=== PATIENT | male | born 1965 | race Caucasian/White ===

== ENCOUNTER 2019-11-17 00:56 | Inpatient (IN) | payer MEDICAID ==
[~2019-11-17] VITALS: Ht 167.6 cm; Wt 75.3 kg
[2019-11-17] VITALS (18 sets, daily range): BP systolic 123–181; BP diastolic 77–116
[2019-11-17] MEDS ORDERED: SUCCINYLCHOLINE CHLORIDE 200MG/10ML IV ONE ×2 (01:03→01:15)
[2019-11-17] MEDS ORDERED: ETOMIDATE 2MG/ML 10ML VIAL IV ONE ×2 (01:03→01:15)
[2019-11-17] MEDS ORDERED: MORPHINE SULFATE 4 MG/ML CPJ (NOT FOR IM USE) IV STA (01:06)
[2019-11-17] MEDS ORDERED: NITROGLYCERIN 50MG PREMIX 250 ML IV ONE (01:06)
[2019-11-17] MEDS ORDERED: ONDANSETRON HCL 4MG/2ML INJ IV STA (01:06)
[2019-11-17] MEDS ORDERED: FUROSEMIDE 40MG/4ML VIAL IV ONE (01:15)
[2019-11-17] MEDS ORDERED: MIDAZOLAM HCL 50 MG in DEXTROSE 5% WATER 40 ML IV ONE (01:15)
[2019-11-17] MEDS ORDERED: MIDAZOLAM HCL 2 MG/2 ML VIAL IV ONE (01:15)
[2019-11-17] MEDS ORDERED: FENTANYL CITRATE/PF 500 MCG in SODIUM CHLORIDE 0.9% 40 ML IV PRN ×5 (01:15→10:15)
[2019-11-17 01:44] LABS: BASOPHILS % 0.7 % (0.0-2.0); EOSINOPHILS % 1.2 % (0.0-5.0); HEMATOCRIT. 42.4 % (42.0-52.0); HEMOGLOBIN. 13.6 g/dL (14.0-18.0); LYMPHOCYTES % 21.7 % (20.0-50.0); MEAN CORPUSCULAR HEMOGLOBIN 25.6 pg (28.0-32.0); MEAN CORPUSCULAR VOLUME 79.5 fL (80.0-94.0); MEAN PLATELET VOLUME 8.5 fl (7.4-10.4); MONOCYTES % 5.5 % (2.0-8.0); NEUTROPHILS % 70.9 % (40.0-76.0); PLATELET 303 x1000/uL (130-400); RED BLOOD CELL COUNT 5.33 mill/uL (4.7-6.1); RED CELL DISTRIBUTION WIDTH 16.4 % (11.6-14.6)
[2019-11-17 01:46] LABS: CHLORIDE 105 mEq/L (98-107)
[2019-11-17 02:08] LABS: BG BASE EXCESS -2.7 mmol/L (-2.0-2.0); BG CARBOXYHEMOGLOBIN 0.4 % (0.5-1.5); BG FRACTION INSPIRED OXYGEN 100; BG HCO3 ACT 22.8 mmol/L (22.0-26.0); BG METHEMOGLOBIN 0.3 % (0.0-1.5); BG OXYHEMOGLOBIN 98.3 % (94.0-97.0); BG PCO2 41.8 mmHg (35.0-45.0); BG PH 7.354 (7.350-7.450); BG PO2 161.4 mmHg (75.0-100.0); BG SAMPLE SITE RIGHT BRACHIAL; BG TIDAL VOLUME(mL) 500 mL; BG TOTAL HEMOGLOBIN 12.8 g/dL (12.0-18.0); BG VENT MODE VENT - A/C; BG VENT RATE 16 set
[2019-11-17] MEDS ORDERED: MIDAZOLAM 50 MG in DEXTROSE 5% WATER 50ML IV ONE (06:30)
[2019-11-17] MEDS ORDERED: ACETAMINOPHEN 325MG TABLET PO PRN (07:30)
[2019-11-17] MEDS ORDERED: HYDROCODONE/ACETAMINOPHEN 5/325MG TABLET PO PRN (07:30)
[2019-11-17] MEDS ORDERED: IPRATROPIUM/ALBUTEROL 0.5-3(2.5)MG/3ML NEB NEB PRN (07:30)
[2019-11-17] MEDS ORDERED: MORPHINE SULFATE 2 MG/ML CPJ (NOT FOR IM USE) IV PRN (07:30)
[2019-11-17] MEDS ORDERED: LORAZEPAM 2MG/ML CPJ IV PRN (07:30)
[2019-11-17] MEDS ORDERED: ONDANSETRON HCL 4MG/2ML INJ IV PRN (07:30)
[2019-11-17] MEDS ORDERED: CEFTRIAXONE 1 G PREMIX 50 ML IV ONE (08:15)
[2019-11-17] MEDS ORDERED: AZITHROMYCIN 500 MG in DEXT 5% WATER 250 ML IV ONE (08:15)
[2019-11-17] MEDS: METHYLPREDNISOLONE SOD SUCC 125 MG/2 ML VIAL IV SCH ×4 (08:44→23:18)
[2019-11-17] MEDS: ENOXAPARIN 40MG/0.4ML SYR SUBCUT SCH (09:02)
[2019-11-17 10:01] LABS: CLARITY URINE CLOUDY (CLEAR); COLOR URINE DARK YELLOW (YELLOW); KETONES URINE TRACE (NEGATIVE); LEUKOCYTE ESTERASE URINE TRACE (NEGATIVE); NITRITE URINE NEGATIVE (NEGATIVE); OCCULT BLOOD URINE 2+ (NEGATIVE); PROTEIN URINE 4+ (NEGATIVE); SPECIFIC GRAVITY URINE 1.029 (1.005-1.030)
[2019-11-17] MEDS ORDERED: MIDAZOLAM HCL 50 MG in DEXTROSE 5% WATER 40 ML IV PRN (10:15)
[2019-11-17 10:25] LABS: *BARBITURATES SCREEN URINE NEGATIVE (NEGATIVE)
[2019-11-17 10:26] LABS: *AMPHETAMINES SCREEN URINE NEGATIVE (NEGATIVE); *BENZODIAZEPINES SCREEN URINE NEGATIVE (NEGATIVE); *COCAINE SCREEN URINE NEGATIVE (NEGATIVE); METHADONE URINE SCREEN NEGATIVE (NEGATIVE); OPIATES URINE SCREEN NEGATIVE (NEGATIVE); PHENCYCLIDINE URINE SCREEN NEGATIVE (NEGATIVE)
[2019-11-17 10:27] LABS: CANNABINOID URINE SCREEN NEGATIVE (NEGATIVE)
[2019-11-17] MEDS: FUROSEMIDE 40MG/4ML VIAL IVP SCH (11:02)
[2019-11-17] MEDS: PANTOPRAZOLE SODIUM 40 MG/VIAL IV SCH (11:02)
[2019-11-17 14:36] LABS: HEPATITIS B SURFACE ANTIGEN NEGATIVE
[2019-11-17] MEDS: AMLODIPINE 2.5MG TABLET NG SCH ×2 (15:00→20:09)
[2019-11-17 15:05] LABS: HEPATITIS A AB IGM NEGATIVE (NEGATIVE)
[2019-11-17 15:33] LABS: BASOPHILS % 0.1 % (0.0-2.0); HEMATOCRIT. 40.3 % (42.0-52.0); HEMOGLOBIN. 13.4 g/dL (14.0-18.0); LYMPHOCYTES % 9.2 % (20.0-50.0); MEAN CORPUSCULAR HEMOGLOBIN 25.9 pg (28.0-32.0); MEAN PLATELET VOLUME 8.6 fl (7.4-10.4); MONOCYTES % 1.7 % (2.0-8.0); PLATELET 235 x1000/uL (130-400); RED BLOOD CELL COUNT 5.17 mill/uL (4.7-6.1); RED CELL DISTRIBUTION WIDTH 16.6 % (11.6-14.6)
[2019-11-17 15:55] LABS: CHLORIDE 102 mEq/L (98-107)
[2019-11-17 16:05] LABS: CREATINE KINASE 79 IU/L (39-308)
[2019-11-17 16:08] LABS: CREATINE KINASE MB FRACTION 3.2 ng/mL (0.5-3.6)
[2019-11-17] MEDS ORDERED: POTASSIUM CHLORIDE 20MEQ/PACKET PO SCH (16:30)
[2019-11-17] MEDS ORDERED: DEXTROSE 50% WATER 50ML SYRINGE IV PRN ×2 (22:00)
[2019-11-18] VITALS (31 sets, daily range): BP systolic 129–160; BP diastolic 80–104
[2019-11-18 00:45] LABS: CREATINE KINASE 57 IU/L (39-308)
[2019-11-18 00:46] LABS: CREATINE KINASE MB FRACTION 2.6 ng/mL (0.5-3.6)
[2019-11-18 05:38] LABS: CHLORIDE 104 mEq/L (98-107)
[2019-11-18 05:40] LABS: HEMATOCRIT. 40.4 % (42.0-52.0); HEMOGLOBIN. 13.3 g/dL (14.0-18.0); MEAN CORPUSCULAR HEMOGLOBIN 25.9 pg (28.0-32.0); MEAN CORPUSCULAR VOLUME 78.5 fL (80.0-94.0); MEAN PLATELET VOLUME 8.9 fl (7.4-10.4); PLATELET 239 x1000/uL (130-400); RED BLOOD CELL COUNT 5.14 mill/uL (4.7-6.1); RED CELL DISTRIBUTION WIDTH 16.7 % (11.6-14.6)
[2019-11-18] MEDS: BLOOD SUGAR DIAGNOSTIC STRIP TEST SCH ×4 (06:21→23:24)
[2019-11-18] MEDS: INSULIN LISPRO 100 UNITS/ML SUBCUT SCH ×4 (06:21→23:24)
[2019-11-18] MEDS: METHYLPREDNISOLONE SOD SUCC 125 MG/2 ML VIAL IV SCH (06:21)
[2019-11-18] MEDS: IPRATROPIUM/ALBUTEROL 0.5-3(2.5)MG/3ML NEB HHN PRN ×3 (07:25→15:20)
[2019-11-18] MEDS ORDERED: BLOOD SUGAR DIAGNOSTIC STRIP TEST SCH (07:50)
[2019-11-18 07:51] LABS: BG BASE EXCESS 0.6 mmol/L (-2.0-2.0); BG CARBOXYHEMOGLOBIN 0.8 % (0.5-1.5); BG DEOXYHEMOGLOBIN 0.3 % (0.0-5.0); BG FRACTION INSPIRED OXYGEN 70; BG HCO3 ACT 23.8 mmol/L (22.0-26.0); BG METHEMOGLOBIN 0.4 % (0.0-1.5); BG OXYGEN SATURATION 99.7 % (92.0-98.5); BG OXYHEMOGLOBIN 98.5 % (94.0-97.0); BG PCO2 34.1 mmHg (35.0-45.0); BG PH 7.462 (7.350-7.450); BG PO2 307.7 mmHg (75.0-100.0); BG SAMPLE SITE RIGHT RADIAL; BG TIDAL VOLUME(mL) 500 mL; BG VENT MODE VENT - A/C; BG VENT RATE 16 set
[2019-11-18] MEDS ORDERED: INSULIN LISPRO 100 UNITS/ML SUBCUT SCH (08:20)
[2019-11-18] MEDS: ASPIRIN 81MG TABLET NG SCH (09:10)
[2019-11-18] MEDS: FUROSEMIDE 40MG/4ML VIAL IVP SCH (09:10)
[2019-11-18] MEDS: AMLODIPINE 2.5MG TABLET NG SCH (09:11)
[2019-11-18] MEDS: AZITHROMYCIN 500 MG in DEXT 5% WATER 250 ML IV SCH (09:11)
[2019-11-18] MEDS: ENOXAPARIN 40MG/0.4ML SYR SUBCUT SCH (09:11)
[2019-11-18] MEDS: PANTOPRAZOLE SODIUM 40 MG/VIAL IV SCH (10:51)
[2019-11-18] MEDS: CEFTRIAXONE 1 G PREMIX 50 ML IV SCH (10:52)
[2019-11-18 12:20] LABS: BG BASE EXCESS 0.3 mmol/L (-2.0-2.0); BG CARBOXYHEMOGLOBIN 0.7 % (0.5-1.5); BG FRACTION INSPIRED OXYGEN 40; BG HCO3 ACT 23.6 mmol/L (22.0-26.0); BG METHEMOGLOBIN 0.4 % (0.0-1.5); BG OXYHEMOGLOBIN 95.9 % (94.0-97.0); BG PCO2 34.4 mmHg (35.0-45.0); BG PH 7.455 (7.350-7.450); BG PO2 92.8 mmHg (75.0-100.0); BG PRESSURE SUPPORT 8; BG SAMPLE SITE RIGHT BRACHIAL; BG TOTAL HEMOGLOBIN 14.5 g/dL (12.0-18.0); BG VENT MODE VENT - CPAP
[2019-11-18 12:24] LABS: PLATELET ESTIMATE NORMAL
[2019-11-18] MEDS ORDERED: POTASSIUM CHLORIDE 20MEQ/PACKET NG NR (14:15)
[2019-11-18] MEDS: CARVEDILOL 3.125 MG TABLET NG SCH ×2 (17:47→20:39)
[2019-11-18] MEDS: METHYLPREDNISOLONE SOD SUCC 40 MG/ML VIAL IV SCH (17:47)
[2019-11-19] VITALS (35 sets, daily range): BP systolic 100–147; BP diastolic 42–92
[2019-11-19] MEDS: BLOOD SUGAR DIAGNOSTIC STRIP TEST SCH ×4 (05:26→21:46)
[2019-11-19] MEDS: INSULIN LISPRO 100 UNITS/ML SUBCUT SCH ×4 (05:27→21:47)
[2019-11-19 05:36] LABS: HEMATOCRIT. 41.7 % (42.0-52.0); HEMOGLOBIN. 13.7 g/dL (14.0-18.0); MEAN CORPUSCULAR HEMOGLOBIN 25.7 pg (28.0-32.0); MEAN CORPUSCULAR VOLUME 78.2 fL (80.0-94.0); MEAN PLATELET VOLUME 8.5 fl (7.4-10.4); PLATELET 275 x1000/uL (130-400); RED BLOOD CELL COUNT 5.34 mill/uL (4.7-6.1); RED CELL DISTRIBUTION WIDTH 16.6 % (11.6-14.6)
[2019-11-19 05:39] LABS: CHLORIDE 104 mEq/L (98-107)
[2019-11-19 09:06] LABS: HIV SCREEN 4G Non Reactive (Non Reactive)
[2019-11-19] MEDS: CARVEDILOL 3.125 MG TABLET NG SCH ×2 (09:20→20:24)
[2019-11-19] MEDS: METHYLPREDNISOLONE SOD SUCC 40 MG/ML VIAL IV SCH (09:20)
[2019-11-19] MEDS: PANTOPRAZOLE SODIUM 40 MG/VIAL IV SCH (09:20)
[2019-11-19] MEDS: POTASSIUM CHLORIDE 20MEQ/PACKET NG SCH (09:20)
[2019-11-19] MEDS: FUROSEMIDE 40MG/4ML VIAL IVP SCH (09:20)
[2019-11-19] MEDS: ASPIRIN 81MG TABLET NG SCH (09:20)
[2019-11-19] MEDS: LISINOPRIL 2.5MG TABLET NG SCH (09:21)
[2019-11-19] MEDS: AMLODIPINE 2.5MG TABLET NG SCH (09:21)
[2019-11-19] MEDS: ENOXAPARIN 40MG/0.4ML SYR SUBCUT SCH (09:21)
[2019-11-19] MEDS: CEFTRIAXONE 1 G PREMIX 50 ML IV SCH ×2 (10:10→17:46)
[2019-11-19 10:55] LABS: PLATELET ESTIMATE NORMAL
[2019-11-19] MEDS: AZITHROMYCIN 500 MG in DEXT 5% WATER 250 ML IV SCH (11:37)
[2019-11-20] VITALS (26 sets, daily range): BP systolic 119–149; BP diastolic 67–100
[2019-11-20] MEDS: IPRATROPIUM/ALBUTEROL 0.5-3(2.5)MG/3ML NEB HHN PRN (00:31)
[2019-11-20 06:07] LABS: BASOPHILS % 0.1 % (0.0-2.0); HEMATOCRIT. 42.1 % (42.0-52.0); LYMPHOCYTES % 9.5 % (20.0-50.0); MEAN CORPUSCULAR HEMOGLOBIN 25.9 pg (28.0-32.0); MEAN CORPUSCULAR VOLUME 78.3 fL (80.0-94.0); MEAN PLATELET VOLUME 8.6 fl (7.4-10.4); MONOCYTES % 5.8 % (2.0-8.0); NEUTROPHILS % 84.6 % (40.0-76.0); PLATELET 269 x1000/uL (130-400); RED BLOOD CELL COUNT 5.38 mill/uL (4.7-6.1); RED CELL DISTRIBUTION WIDTH 16.3 % (11.6-14.6)
[2019-11-20 06:19] LABS: CHLORIDE 103 mEq/L (98-107)
[2019-11-20 06:37] LABS: PROTHROMBIN TIME 11.1 sec (9.6-11.0)
[2019-11-20] MEDS: INSULIN LISPRO 100 UNITS/ML SUBCUT SCH ×4 (07:50→21:20)
[2019-11-20] MEDS: POTASSIUM CHLORIDE 20MEQ/PACKET NG SCH (08:46)
[2019-11-20] MEDS: CARVEDILOL 3.125 MG TABLET NG SCH (08:46)
[2019-11-20] MEDS: BLOOD SUGAR DIAGNOSTIC STRIP TEST SCH ×4 (08:46→21:15)
[2019-11-20] MEDS: ASPIRIN 81MG TABLET NG SCH (08:46)
[2019-11-20] MEDS: FUROSEMIDE 40MG/4ML VIAL IVP SCH (08:46)
[2019-11-20] MEDS: PANTOPRAZOLE SODIUM 40 MG/VIAL IV SCH (08:46)
[2019-11-20] MEDS: PREDNISONE 20MG TABLET PO SCH (08:48)
[2019-11-20] MEDS: LISINOPRIL 2.5MG TABLET NG SCH (09:00)
[2019-11-20] MEDS: AMLODIPINE 2.5MG TABLET NG SCH (09:00)
[2019-11-20] MEDS: ENOXAPARIN 40MG/0.4ML SYR SUBCUT SCH (09:00)
[2019-11-20] MEDS ORDERED: IODIXANOL 320MG/ML 100 ML BOTTLE IV ONE ×2 (11:50→12:13)
[2019-11-20] MEDS ORDERED: LIDOCAINE HCL 1% 20ML VIAL (Pyxis) INJ ONE (11:50)
[2019-11-20] MEDS ORDERED: FENTANYL CITRATE/PF 50MCG/ML 2ML VIAL ONE (11:53)
[2019-11-20] MEDS ORDERED: MIDAZOLAM HCL 2 MG/2 ML VIAL ONE (11:53)
[2019-11-20] MEDS ORDERED: ONDANSETRON HCL 4MG/2ML INJ IV PRN (13:00)
[2019-11-20] MEDS ORDERED: ACETAMINOPHEN 325MG TABLET PO PRN ×2 (13:00→17:15)
[2019-11-20] MEDS ORDERED: ATROPINE SULFATE 1MG/10ML SYR IV PRN (13:00)
[2019-11-20] MEDS: AZITHROMYCIN 500 MG in DEXT 5% WATER 250 ML IV SCH (14:16)
[2019-11-20] MEDS ORDERED: NITROGLYCERIN 50MCG/ML 10ML VIAL (CATH LAB) IV ONE (15:56)
[2019-11-20] MEDS ORDERED: HEPARIN SODIUM 1,000 UNIT/1ML VIAL IV ONE (15:56)
[2019-11-20] MEDS ORDERED: NICARDIPINE 100MCG/ML 10ML VIAL (CATH LAB) IV ONE (15:56)
[2019-11-20] MEDS ORDERED: NITROGLYCERIN 0.4MG TABLET SL SL PRN (17:15)
[2019-11-20] MEDS: ASCORBIC ACID 500 MG TABLET PO SCH (18:13)
[2019-11-20] MEDS: CEFTRIAXONE 1 G PREMIX 50 ML IV SCH (18:13)
[2019-11-20 19:36] LABS: PROTHROMBIN TIME 10.9 sec (9.6-11.0)
[2019-11-20 19:42] LABS: CHLORIDE 100 mEq/L (98-107)
[2019-11-20] MEDS: CARVEDILOL 6.25 MG TABLET PO SCH (21:21)
[2019-11-20] MEDS ORDERED: CEFTRIAXONE 1 G PREMIX 50 ML IV SCH (23:30)
[2019-11-21] VITALS (20 sets, daily range): BP systolic 95–143; BP diastolic 54–88
[2019-11-21 05:10] LABS: BASOPHILS % 0.1 % (0.0-2.0); EOSINOPHILS % 0.2 % (0.0-5.0); HEMATOCRIT. 39.7 % (42.0-52.0); HEMOGLOBIN. 13.7 g/dL (14.0-18.0); LYMPHOCYTES % 14.6 % (20.0-50.0); MEAN CORPUSCULAR HEMOGLOBIN 26.5 pg (28.0-32.0); MEAN CORPUSCULAR VOLUME 77.2 fL (80.0-94.0); MEAN PLATELET VOLUME 8.5 fl (7.4-10.4); MONOCYTES % 6.5 % (2.0-8.0); NEUTROPHILS % 78.6 % (40.0-76.0); PLATELET 259 x1000/uL (130-400); RED BLOOD CELL COUNT 5.15 mill/uL (4.7-6.1)
[2019-11-21 05:27] LABS: CHLORIDE 101 mEq/L (98-107)
[2019-11-21] MEDS: BLOOD SUGAR DIAGNOSTIC STRIP TEST SCH ×4 (08:24→21:54)
[2019-11-21] MEDS ORDERED: ASPIRIN 325MG TABLET PO SCH (09:00)
[2019-11-21] MEDS: ENOXAPARIN 40MG/0.4ML SYR SUBCUT SCH (09:10)
[2019-11-21] MEDS: INSULIN LISPRO 100 UNITS/ML SUBCUT SCH ×6 (09:10→21:56)
[2019-11-21] MEDS: LISINOPRIL 2.5MG TABLET NG SCH (09:10)
[2019-11-21] MEDS: ASCORBIC ACID 500 MG TABLET PO SCH (09:11)
[2019-11-21] MEDS: PREDNISONE 20MG TABLET PO SCH (09:11)
[2019-11-21] MEDS: CARVEDILOL 6.25 MG TABLET PO SCH ×2 (09:11→21:00)
[2019-11-21] MEDS: POTASSIUM CHLORIDE 20MEQ/PACKET NG SCH (09:11)
[2019-11-21] MEDS: PANTOPRAZOLE SODIUM 40 MG/VIAL IV SCH (09:11)
[2019-11-21] MEDS: AMLODIPINE 2.5MG TABLET NG SCH (09:11)
[2019-11-21] MEDS: ASPIRIN 81MG EC TABLET PO SCH (09:12)
[2019-11-21] MEDS: FUROSEMIDE 40MG/4ML VIAL IVP SCH (09:12)
[2019-11-21] MEDS: AZITHROMYCIN 500 MG in DEXT 5% WATER 250 ML IV SCH (09:39)
[2019-11-21] MEDS ORDERED: MAGNESIUM 4 G PREMIX 100 ML IV NR (10:00)
[2019-11-21 13:52] LABS: CHLORIDE 98 mEq/L (98-107)
[2019-11-21] MEDS ORDERED: AMLO10TA80 PO (15:35)
[2019-11-21] MEDS ORDERED: BRIM5DRO6 OP (15:35)
[2019-11-21] MEDS ORDERED: ATOR40TA70 PO (15:35)
[2019-11-21] MEDS ORDERED: TIMO5DRO27 LEFTEYE (15:35)
[2019-11-21] MEDS ORDERED: GLIM4TAB36 PO (15:35)
[2019-11-21] MEDS ORDERED: METF-416 PO (15:35)
[2019-11-21] MEDS: CEFTRIAXONE 1 G PREMIX 50 ML IV SCH (18:58)
[2019-11-21] MEDS ORDERED: BISACODYL 10MG SUPP PR PRN (21:00)
[2019-11-21] MEDS ORDERED: CHLORHEXIDINE GLUCONATE 4% EXTERNAL USE TOP SCH (21:00)
[2019-11-21] MEDS ORDERED: ALLOPURINOL 300 MG TABLET PO SCH ×2 (21:00)
[2019-11-21] MEDS: DOCUSATE SODIUM 100MG CAPSULE PO SCH (21:53)
[2019-11-22] VITALS (13 sets, daily range): BP systolic 91–137; BP diastolic 54–78
[2019-11-22] MEDS: BLOOD SUGAR DIAGNOSTIC STRIP TEST SCH ×4 (06:25→20:14)
[2019-11-22] MEDS: INSULIN LISPRO 100 UNITS/ML SUBCUT SCH ×7 (06:27→20:14)
[2019-11-22 08:02] LABS: BASOPHILS % 0.2 % (0.0-2.0); EOSINOPHILS % 1.5 % (0.0-5.0); HEMATOCRIT. 38.6 % (42.0-52.0); HEMOGLOBIN. 12.8 g/dL (14.0-18.0); LYMPHOCYTES % 21.5 % (20.0-50.0); MEAN CORPUSCULAR HEMOGLOBIN 25.7 pg (28.0-32.0); MEAN CORPUSCULAR VOLUME 77.3 fL (80.0-94.0); MEAN PLATELET VOLUME 8.4 fl (7.4-10.4); MONOCYTES % 7.4 % (2.0-8.0); NEUTROPHILS % 69.4 % (40.0-76.0); PLATELET 246 x1000/uL (130-400); RED BLOOD CELL COUNT 4.99 mill/uL (4.7-6.1); RED CELL DISTRIBUTION WIDTH 16.1 % (11.6-14.6)
[2019-11-22] MEDS: ASCORBIC ACID 500 MG TABLET PO SCH (08:19)
[2019-11-22] MEDS: FUROSEMIDE 40MG/4ML VIAL IVP SCH (08:20)
[2019-11-22] MEDS: PANTOPRAZOLE SODIUM 40 MG/VIAL IV SCH (08:20)
[2019-11-22] MEDS: POTASSIUM CHLORIDE 20MEQ/PACKET NG SCH (08:20)
[2019-11-22] MEDS: ASPIRIN 81MG EC TABLET PO SCH (08:21)
[2019-11-22] MEDS: CARVEDILOL 6.25 MG TABLET PO SCH ×2 (08:21→20:12)
[2019-11-22] MEDS: PREDNISONE 20MG TABLET PO SCH (08:21)
[2019-11-22] MEDS: LISINOPRIL 2.5MG TABLET NG SCH (08:21)
[2019-11-22] MEDS: AMLODIPINE 2.5MG TABLET NG SCH (08:22)
[2019-11-22] MEDS: ENOXAPARIN 40MG/0.4ML SYR SUBCUT SCH (08:22)
[2019-11-22] MEDS ORDERED: CHLORHEXIDINE GLUCONATE 4% EXTERNAL USE TOP SCH (09:00)
[2019-11-22 09:11] LABS: CHLORIDE 103 mEq/L (98-107)
[2019-11-22] MEDS: AZITHROMYCIN 500 MG in DEXT 5% WATER 250 ML IV SCH (10:37)
[2019-11-22] MEDS: CEFTRIAXONE 1 G PREMIX 50 ML IV SCH (16:28)
[2019-11-22] MEDS: DOCUSATE SODIUM 100MG CAPSULE PO SCH (20:12)
[2019-11-23] VITALS (11 sets, daily range): BP systolic 102–137; BP diastolic 62–95
[2019-11-23] MEDS: BLOOD SUGAR DIAGNOSTIC STRIP TEST SCH ×4 (06:08→20:35)
[2019-11-23 06:49] LABS: BASOPHILS % 0.2 % (0.0-2.0); HEMATOCRIT. 36.9 % (42.0-52.0); HEMOGLOBIN. 12.6 g/dL (14.0-18.0); LYMPHOCYTES % 27.6 % (20.0-50.0); MEAN CORPUSCULAR HEMOGLOBIN 26.1 pg (28.0-32.0); MEAN CORPUSCULAR VOLUME 76.7 fL (80.0-94.0); MEAN PLATELET VOLUME 8.3 fl (7.4-10.4); MONOCYTES % 7.4 % (2.0-8.0); NEUTROPHILS % 62.8 % (40.0-76.0); PLATELET 216 x1000/uL (130-400); RED BLOOD CELL COUNT 4.81 mill/uL (4.7-6.1); RED CELL DISTRIBUTION WIDTH 16.1 % (11.6-14.6)
[2019-11-23 07:59] LABS: CHLORIDE 104 mEq/L (98-107)
[2019-11-23] MEDS: POTASSIUM CHLORIDE 20MEQ/PACKET NG SCH (08:36)
[2019-11-23] MEDS: FUROSEMIDE 40MG/4ML VIAL IVP SCH (08:36)
[2019-11-23] MEDS: PANTOPRAZOLE SODIUM 40 MG/VIAL IV SCH (08:36)
[2019-11-23] MEDS: ASPIRIN 81MG EC TABLET PO SCH (08:37)
[2019-11-23] MEDS: LISINOPRIL 2.5MG TABLET NG SCH (08:37)
[2019-11-23] MEDS: PREDNISONE 20MG TABLET PO SCH (08:37)
[2019-11-23] MEDS: AMLODIPINE 2.5MG TABLET NG SCH (08:37)
[2019-11-23] MEDS: CARVEDILOL 6.25 MG TABLET PO SCH ×2 (08:38→20:45)
[2019-11-23] MEDS: INSULIN LISPRO 100 UNITS/ML SUBCUT SCH ×6 (08:49→20:46)
[2019-11-23] MEDS: AZITHROMYCIN 500 MG in DEXT 5% WATER 250 ML IV SCH (08:51)
[2019-11-23] MEDS ORDERED: INSULIN LISPRO 100 UNITS/ML SUBCUT SCH (16:50)
[2019-11-23] MEDS: CEFTRIAXONE 1 G PREMIX 50 ML IV SCH (18:04)
[2019-11-23] MEDS ORDERED: CHLORHEXIDINE GLUCONATE 4% EXTERNAL USE TOP SCH (21:00)
[2019-11-23] MEDS: ALLOPURINOL 300 MG TABLET PO SCH (21:37)
[2019-11-23] MEDS ORDERED: INSULIN GLARGINE UD 100 UNITS/ML SYR SUBCUT SCH (22:00)
[2019-11-24] VITALS (50 sets, daily range): BP systolic 95–240; BP diastolic 52–239
[2019-11-24] MEDS: IPRATROPIUM/ALBUTEROL 0.5-3(2.5)MG/3ML NEB HHN SCH (00:38)
[2019-11-24] MEDS ORDERED: MAGNESIUM 4 G PREMIX 100 ML IV SCH (01:00)
[2019-11-24] MEDS ORDERED: BLOOD SUGAR DIAGNOSTIC STRIP TEST NR (04:00)
[2019-11-24] MEDS: ALLOPURINOL 300 MG TABLET PO SCH (04:30)
[2019-11-24] MEDS ORDERED: CEFAZOLIN 1000MG PREMIX 50 ML IV NR (05:00)
[2019-11-24] MEDS ORDERED: VANCOMYCIN 1 G PREMIX 200 ML IV NR (05:00)
[2019-11-24] MEDS ORDERED: MIDAZOLAM HCL 5 MG/ML VIAL ONE (05:56)
[2019-11-24] MEDS ORDERED: CALCIUM CHLORIDE 1GM/10ML SYR IV ONE ×2 (05:58→08:21)
[2019-11-24] MEDS ORDERED: EPINEPHRINE 4 MG in DEXT 5% WATER 246 ML IV SCH (06:00)
[2019-11-24] MEDS ORDERED: DILTIAZEM HCL 5MG/ML 25ML VIAL IV SCH (06:00)
[2019-11-24] MEDS ORDERED: INSULIN REGULAR (DRIP) 100 UNITS in SODIUM CHLORIDE 0.9% 99 ML IV SCH (06:00)
[2019-11-24] MEDS ORDERED: CEFAZOLIN 2,000 MG in DEXT 5% WATER 100 ML IV SCH (06:00)
[2019-11-24] MEDS ORDERED: NICARDIPINE 50 MG in NS 250 ML IV SCH (06:00)
[2019-11-24] MEDS ORDERED: DEL NIDO ELECTROLYTE-S(PH 7.4) 1,000 ML IV SCH ×2 (06:00)
[2019-11-24] MEDS ORDERED: DOBUTAMINE 250MG PREMIX 250 ML IV SCH (06:00)
[2019-11-24] MEDS ORDERED: NOREPINEPHRINE 4 MG in DEXT 5% WATER 246 ML IV SCH (06:00)
[2019-11-24] MEDS ORDERED: PHENYLEPHRINE 10 MG in DEXT 5% WATER 249 ML IV SCH (06:00)
[2019-11-24] MEDS ORDERED: AMINOCAPROIC ACID 10,000 MG in SODIUM CHLORIDE 0.9% 460 ML IV SCH (06:00)
[2019-11-24] MEDS ORDERED: PAPAVERINE HCL 180MG in SODIUM CHLORIDE 0.9% 24ML IV SCH (06:00)
[2019-11-24] MEDS ORDERED: BACITRACIN 15GM TUBE TOP ONE (06:20)
[2019-11-24] MEDS ORDERED: SKIN ADHESIVE 0.7 GM EA TOP ONE (06:20)
[2019-11-24] MEDS ORDERED: BACITRACIN 50,000 UNITS/VIAL ONE (06:21)
[2019-11-24] MEDS ORDERED: THROMBIN (BOVINE) 5000 UNITS/VIAL TOP ONE (06:21)
[2019-11-24] MEDS ORDERED: NORMAL SALINE 0.9% 10 ML SYR ONE (06:21)
[2019-11-24] MEDS ORDERED: CHLORHEXIDINE GLUCONATE 4% EXTERNAL USE TOP SCH (07:00)
[2019-11-24 07:30] LABS: BASOPHILS % 0.4 % (0.0-2.0); EOSINOPHILS % 1.4 % (0.0-5.0); HEMATOCRIT. 41.5 % (42.0-52.0); HEMOGLOBIN. 14.1 g/dL (14.0-18.0); LYMPHOCYTES % 23.9 % (20.0-50.0); MEAN CORPUSCULAR VOLUME 76.8 fL (80.0-94.0); MEAN PLATELET VOLUME 8.2 fl (7.4-10.4); MONOCYTES % 6.9 % (2.0-8.0); NEUTROPHILS % 67.4 % (40.0-76.0); PLATELET 253 x1000/uL (130-400); RED BLOOD CELL COUNT 5.41 mill/uL (4.7-6.1); RED CELL DISTRIBUTION WIDTH 16.1 % (11.6-14.6)
[2019-11-24 08:17] LABS: CHLORIDE 104 mEq/L (98-107)
[2019-11-24] MEDS ORDERED: SODIUM BICARBONATE 8.4% 1 MEQ/ML 50ML SYR IV ONE (08:21)
[2019-11-24] MEDS ORDERED: PHENYLEPHRINE HCL 10 MG/ML 1ML (IV VIAL) IV ONE ×2 (08:21→10:37)
[2019-11-24] MEDS ORDERED: ALBUMIN HUMAN 25GM/100ML (25%) IV ONE (08:21)
[2019-11-24] MEDS ORDERED: AMINOCAPROIC ACID 250 MG/ML 20ML VIAL ONE (08:21)
[2019-11-24] MEDS ORDERED: MAGNESIUM SULFATE 5GM/10ML VIAL IV ONE (08:21)
[2019-11-24] MEDS ORDERED: HEPARIN 10,000 UNITS/ML VIAL ONE ×3 (08:22→10:38)
[2019-11-24] MEDS ORDERED: MANNITOL 20% 500 ML IV ONE (08:22)
[2019-11-24] MEDS ORDERED: HEPARIN 1000 UNITS/ML 10ML ONE (08:23)
[2019-11-24] MEDS ORDERED: FUROSEMIDE 100MG/10ML VIAL ONE (10:37)
[2019-11-24] MEDS ORDERED: NEOSTIGMINE METHYLSULFATE 1MG/ML 10 ML VIAL ONE (10:37)
[2019-11-24] MEDS ORDERED: EPHEDRINE SULFATE 50MG/ML VIAL ONE (10:37)
[2019-11-24] MEDS ORDERED: KETOROLAC 30MG/ML VIAL ONE (10:37)
[2019-11-24] MEDS ORDERED: CEFAZOLIN SODIUM 1000MG/VIAL ONE (10:37)
[2019-11-24] MEDS ORDERED: ROCURONIUM BROMIDE 10MG/ML VIAL 5ML IV ONE (10:38)
[2019-11-24] MEDS ORDERED: DEXAMETHASONE 4MG/ML 1ML VIAL ONE (10:38)
[2019-11-24] MEDS ORDERED: FLUMAZENIL 0.1 MG/ML 5ML VIAL IV ONE (10:38)
[2019-11-24] MEDS ORDERED: PROTAMINE SULFATE 10MG/ML VIAL 25ML IV ONE (10:38)
[2019-11-24] MEDS ORDERED: SODIUM CHLORIDE 0.9% 500 ML IV PRN (10:53)
[2019-11-24] MEDS ORDERED: DOPAMINE 400MG/250ML PREMIX 250 ML IV SCH (10:53)
[2019-11-24] MEDS ORDERED: ALBUMIN HUMAN 25GM/100ML (25%) IV PRN (11:00)
[2019-11-24] MEDS ORDERED: MAGNESIUM SULFATE 3 GM in DEXT 5% WATER 100 ML IV PRN (11:00)
[2019-11-24] MEDS ORDERED: ACETAMINOPHEN 325MG TABLET PO PRN (11:00)
[2019-11-24] MEDS ORDERED: OXYCODONE HCL/ACETAMINOPHEN 5/325MG TABLET PO PRN (11:00)
[2019-11-24] MEDS ORDERED: MAGNESIUM 2 G PREMIX 50 ML IV PRN (11:00)
[2019-11-24] MEDS ORDERED: KETOROLAC 30MG/ML VIAL IV PRN (11:00)
[2019-11-24 11:48] LABS: BG BASE EXCESS 1.7 mmol/L (-2.0-2.0); BG CARBOXYHEMOGLOBIN 0.2 % (0.5-1.5); BG DEOXYHEMOGLOBIN 0.4 % (0.0-5.0); BG FRACTION INSPIRED OXYGEN 100; BG HCO3 ACT 24.7 mmol/L (22.0-26.0); BG METHEMOGLOBIN 0.2 % (0.0-1.5); BG OXYGEN SATURATION 99.6 % (92.0-98.5); BG OXYHEMOGLOBIN 99.2 % (94.0-97.0); BG PCO2 33.6 mmHg (35.0-45.0); BG PH 7.484 (7.350-7.450); BG PO2 522.4 mmHg (75.0-100.0); BG SAMPLE SITE A-LINE; BG TOTAL HEMOGLOBIN 12.6 g/dL (12.0-18.0); BG VENT MODE MASK - NRB
[2019-11-24] MEDS: DEXT 5%/0.45% NACL 1000ML 1,000 ML IV SCH (12:00)
[2019-11-24 12:04] LABS: BASOPHILS % 0.3 % (0.0-2.0); EOSINOPHILS % 1.6 % (0.0-5.0); HEMOGLOBIN. 12.3 g/dL (14.0-18.0); MEAN CORPUSCULAR HEMOGLOBIN 26.1 pg (28.0-32.0); MEAN CORPUSCULAR VOLUME 76.7 fL (80.0-94.0); MEAN PLATELET VOLUME 8.2 fl (7.4-10.4); MONOCYTES % 4.2 % (2.0-8.0); NEUTROPHILS % 80.9 % (40.0-76.0); PLATELET 185 x1000/uL (130-400); RED CELL DISTRIBUTION WIDTH 16.1 % (11.6-14.6)
[2019-11-24 12:06] LABS: CHLORIDE 106 mEq/L (98-107)
[2019-11-24] MEDS: FAMOTIDINE 20MG/2ML VIAL IV SCH (12:25)
[2019-11-24] MEDS: CEFAZOLIN 1000MG PREMIX 50 ML IV SCH ×2 (12:26→19:18)
[2019-11-24] MEDS: MAGNESIUM 1 G PREMIX 100 ML IV PRN ×2 (12:29→15:23)
[2019-11-24] MEDS: KCL 10MEQ/50ML PREMIX 100 ML IV PRN ×3 (12:29→18:31)
[2019-11-24] MEDS ORDERED: KCL 10MEQ/50ML PREMIX 150 ML IV PRN (12:30)
[2019-11-24] MEDS ORDERED: KCL 10MEQ/50ML PREMIX 200 ML IV PRN (12:30)
[2019-11-24] MEDS: ALBUMIN HUMAN 12.5G/250ML (5%) IV PRN ×2 (14:44→16:52)
[2019-11-24] MEDS: BACITRACIN 15GM TUBE TOP SCH (17:00)
[2019-11-24 17:43] LABS: HEMOGLOBIN. 10.9 g/dL (14.0-18.0); MEAN CORPUSCULAR HEMOGLOBIN 26.4 pg (28.0-32.0); MEAN CORPUSCULAR VOLUME 77.4 fL (80.0-94.0); MEAN PLATELET VOLUME 8.3 fl (7.4-10.4); PLATELET 238 x1000/uL (130-400); RED BLOOD CELL COUNT 4.13 mill/uL (4.7-6.1)
[2019-11-24 17:48] LABS: CHLORIDE 105 mEq/L (98-107)
[2019-11-24 17:53] LABS: PROTHROMBIN TIME 11.1 sec (9.6-11.0)
[2019-11-24] MEDS: DOCUSATE SODIUM 100MG CAPSULE PO SCH (18:37)
[2019-11-24 18:48] LABS: PLATELET ESTIMATE NORMAL
[2019-11-24] MEDS ORDERED: FUROSEMIDE 40MG/4ML VIAL IVP NR (19:00)
[2019-11-24] MEDS: CARVEDILOL 6.25 MG TABLET PO SCH (20:26)
[2019-11-24] MEDS ORDERED: EPINEPHRINE 4 MG in SODIUM CHLORIDE 0.9% 249 ML IV PRN (22:00)
[2019-11-24] MEDS ORDERED: EPINEPHRINE 4 MG in DEXT 5% WATER 246 ML IV PRN (22:00)
[2019-11-25] VITALS (63 sets, daily range): BP systolic 82–135; BP diastolic 50–84
[2019-11-25 00:03] LABS: PROTHROMBIN TIME 10.7 sec (9.6-11.0)
[2019-11-25 00:16] LABS: HEMATOCRIT. 28.7 % (42.0-52.0); LYMPHOCYTES % 7.2 % (20.0-50.0); MEAN CORPUSCULAR HEMOGLOBIN 26.6 pg (28.0-32.0); MEAN CORPUSCULAR VOLUME 76.5 fL (80.0-94.0); MEAN PLATELET VOLUME 8.3 fl (7.4-10.4); MONOCYTES % 7.4 % (2.0-8.0); NEUTROPHILS % 85.4 % (40.0-76.0); PLATELET 243 x1000/uL (130-400); RED BLOOD CELL COUNT 3.76 mill/uL (4.7-6.1); RED CELL DISTRIBUTION WIDTH 16.1 % (11.6-14.6)
[2019-11-25 00:19] LABS: CHLORIDE 105 mEq/L (98-107)
[2019-11-25] MEDS ORDERED: MAGNESIUM 2 G PREMIX 50 ML IV SCH (01:00)
[2019-11-25] MEDS: CEFAZOLIN 1000MG PREMIX 50 ML IV SCH (02:07)
[2019-11-25] MEDS: IPRATROPIUM/ALBUTEROL 0.5-3(2.5)MG/3ML NEB HHN SCH ×4 (04:25→16:29)
[2019-11-25 05:34] LABS: BASOPHILS % 0.1 % (0.0-2.0); HEMATOCRIT. 29.9 % (42.0-52.0); HEMOGLOBIN. 10.2 g/dL (14.0-18.0); LYMPHOCYTES % 14.5 % (20.0-50.0); MEAN CORPUSCULAR HEMOGLOBIN 26.5 pg (28.0-32.0); MEAN CORPUSCULAR VOLUME 77.2 fL (80.0-94.0); MEAN PLATELET VOLUME 8.4 fl (7.4-10.4); MONOCYTES % 9.2 % (2.0-8.0); NEUTROPHILS % 76.2 % (40.0-76.0); PLATELET 218 x1000/uL (130-400); RED BLOOD CELL COUNT 3.87 mill/uL (4.7-6.1); RED CELL DISTRIBUTION WIDTH 16.2 % (11.6-14.6)
[2019-11-25 05:44] LABS: CHLORIDE 106 mEq/L (98-107)
[2019-11-25] MEDS: DEXT 5%/0.45% NACL 1000ML 1,000 ML IV SCH (06:13)
[2019-11-25] MEDS: KCL 10MEQ/50ML PREMIX 100 ML IV PRN (06:27)
[2019-11-25] MEDS: BACITRACIN 15GM TUBE TOP SCH ×2 (09:00→16:38)
[2019-11-25] MEDS: CARVEDILOL 6.25 MG TABLET PO SCH ×2 (09:00→21:08)
[2019-11-25] MEDS: DOCUSATE SODIUM 100MG CAPSULE PO SCH ×2 (10:03→17:23)
[2019-11-25] MEDS: FAMOTIDINE 20MG/2ML VIAL IV SCH (10:03)
[2019-11-25] MEDS: ASPIRIN 81MG EC TABLET PO SCH (10:03)
[2019-11-25] MEDS: CLOPIDOGREL 75MG TABLET PO SCH (10:03)
[2019-11-25] MEDS ORDERED: DEXTROSE 50% WATER 50ML SYRINGE IV PRN (16:00)
[2019-11-25] MEDS ORDERED: INSULIN GLARGINE UD 100 UNITS/ML SYR SUBCUT NR (18:00)
[2019-11-25] MEDS: INSULIN LISPRO 100 UNITS/ML SUBCUT SCH ×2 (18:20→21:07)
[2019-11-25] MEDS: BLOOD SUGAR DIAGNOSTIC STRIP TEST SCH ×2 (18:30→21:03)
[2019-11-26] VITALS (12 sets, daily range): BP systolic 92–161; BP diastolic 44–84
[2019-11-26] MEDS: IPRATROPIUM/ALBUTEROL 0.5-3(2.5)MG/3ML NEB HHN SCH ×6 (01:06→20:51)
[2019-11-26] MEDS: DEXT 5%/0.45% NACL 1000ML 1,000 ML IV SCH (04:00)
[2019-11-26] MEDS: BLOOD SUGAR DIAGNOSTIC STRIP TEST SCH ×4 (06:18→21:21)
[2019-11-26 07:20] LABS: BASOPHILS % 0.4 % (0.0-2.0); EOSINOPHILS % 0.5 % (0.0-5.0); HEMATOCRIT. 28.5 % (42.0-52.0); HEMOGLOBIN. 9.8 g/dL (14.0-18.0); LYMPHOCYTES % 16.2 % (20.0-50.0); MEAN CORPUSCULAR HEMOGLOBIN 26.3 pg (28.0-32.0); MEAN CORPUSCULAR VOLUME 76.8 fL (80.0-94.0); MEAN PLATELET VOLUME 8.5 fl (7.4-10.4); NEUTROPHILS % 71.9 % (40.0-76.0); PLATELET 192 x1000/uL (130-400); RED BLOOD CELL COUNT 3.71 mill/uL (4.7-6.1); RED CELL DISTRIBUTION WIDTH 16.4 % (11.6-14.6)
[2019-11-26] MEDS ORDERED: FUROSEMIDE 40MG/4ML VIAL IVP NR (08:15)
[2019-11-26] MEDS: CLOPIDOGREL 75MG TABLET PO SCH (08:22)
[2019-11-26] MEDS: DOCUSATE SODIUM 100MG CAPSULE PO SCH ×2 (08:22→16:49)
[2019-11-26] MEDS: ASPIRIN 81MG EC TABLET PO SCH (08:23)
[2019-11-26] MEDS: CARVEDILOL 6.25 MG TABLET PO SCH (08:23)
[2019-11-26] MEDS: BACITRACIN 15GM TUBE TOP SCH ×2 (08:23→16:53)
[2019-11-26] MEDS: FAMOTIDINE 20MG/2ML VIAL IV SCH (08:23)
[2019-11-26] MEDS: INSULIN LISPRO 100 UNITS/ML SUBCUT SCH ×4 (08:24→21:16)
[2019-11-26] MEDS: MORPHINE SULFATE 2 MG/ML CPJ (NOT FOR IM USE) IV PRN ×2 (08:26→12:06)
[2019-11-26 08:28] LABS: CHLORIDE 104 mEq/L (98-107)
[2019-11-26] MEDS ORDERED: MAGNESIUM 2 G PREMIX 50 ML IV NR (09:00)
[2019-11-26] MEDS ORDERED: ATORVASTATIN CALCIUM 10MG TABLET PO SCH (21:00)
[2019-11-26] MEDS: CARVEDILOL 3.125 MG TABLET PO SCH (21:14)
[2019-11-27] VITALS (7 sets, daily range): BP systolic 112–126; BP diastolic 63–68
[2019-11-27] MEDS: DEXT 5%/0.45% NACL 1000ML 1,000 ML IV SCH (00:20)
[2019-11-27] MEDS: IPRATROPIUM/ALBUTEROL 0.5-3(2.5)MG/3ML NEB HHN SCH ×4 (00:31→13:19)
[2019-11-27] MEDS: BLOOD SUGAR DIAGNOSTIC STRIP TEST SCH ×2 (06:03→11:22)
[2019-11-27 06:51] LABS: BASOPHILS % 0.4 % (0.0-2.0); HEMATOCRIT. 23.5 % (42.0-52.0); LYMPHOCYTES % 17.4 % (20.0-50.0); MEAN CORPUSCULAR HEMOGLOBIN 26.1 pg (28.0-32.0); MEAN CORPUSCULAR VOLUME 76.9 fL (80.0-94.0); MEAN PLATELET VOLUME 8.5 fl (7.4-10.4); MONOCYTES % 8.9 % (2.0-8.0); NEUTROPHILS % 72.3 % (40.0-76.0); PLATELET 160 x1000/uL (130-400); RED BLOOD CELL COUNT 3.05 mill/uL (4.7-6.1); RED CELL DISTRIBUTION WIDTH 16.4 % (11.6-14.6)
[2019-11-27 08:05] LABS: CHLORIDE 101 mEq/L (98-107)
[2019-11-27] MEDS: INSULIN LISPRO 100 UNITS/ML SUBCUT SCH ×2 (08:14→14:10)
[2019-11-27] MEDS: ASPIRIN 81MG EC TABLET PO SCH (08:15)
[2019-11-27] MEDS: FAMOTIDINE 20MG/2ML VIAL IV SCH (08:15)
[2019-11-27] MEDS: DOCUSATE SODIUM 100MG CAPSULE PO SCH (08:15)
[2019-11-27] MEDS: CLOPIDOGREL 75MG TABLET PO SCH (08:16)
[2019-11-27] MEDS: CARVEDILOL 3.125 MG TABLET PO SCH (08:16)
[2019-11-27] MEDS: BACITRACIN 15GM TUBE TOP SCH (08:16)
[2019-11-27] MEDS ORDERED: FUROSEMIDE 40MG/4ML VIAL IVP SCH (08:45)
[2019-11-27 09:41] LABS: BASOPHILS % 0.3 % (0.0-2.0); EOSINOPHILS % 0.7 % (0.0-5.0); HEMATOCRIT. 26.5 % (42.0-52.0); HEMOGLOBIN. 8.9 g/dL (14.0-18.0); LYMPHOCYTES % 18.2 % (20.0-50.0); MEAN CORPUSCULAR HEMOGLOBIN 26.3 pg (28.0-32.0); MEAN CORPUSCULAR VOLUME 78.1 fL (80.0-94.0); MEAN PLATELET VOLUME 8.7 fl (7.4-10.4); MONOCYTES % 8.8 % (2.0-8.0); PLATELET 166 x1000/uL (130-400); RED BLOOD CELL COUNT 3.39 mill/uL (4.7-6.1); RED CELL DISTRIBUTION WIDTH 16.7 % (11.6-14.6)
[2019-11-27] MEDS ORDERED: LOSA25TA26 MT (10:16)
[2019-11-27] MEDS ORDERED: CLOP75TA4 MT (10:16)
[2019-11-27] MEDS ORDERED: ASPI-1158 MT (10:16)
[2019-11-27] MEDS ORDERED: OXYC-523 MT ×3 (10:16→10:53)
[2019-11-27] MEDS ORDERED: CARV3.1242 MT (10:16)
== END 2019-11-27 14:30 | disposition home health service (06) | DRG 165 ==
LOC: ER 00:56 → EDBD 02:35 → CVICU 02:35 → EDBEDREQ 02:38 → EDBEDREQTM 02:38 → ENRESERV 08:53 → 3WST 11:14 → CVICU 11:16 → 3WST 11-21 14:55 → CVICU 11-24 07:25 → 3WST 11-25 18:43
PROVIDERS: ADMIT Internal Medicine Nephrology; ATTEND Internal Medicine Nephrology
PROC: 5A1945Z Respiratory Ventilation, 24-96 Consecutive Hours (ICD-10-PCS; principal; 2019-11-17)
PROC: 0BH17EZ Insertion of Endotracheal Airway into Trachea, Via Natural or Artificial Opening (ICD-10-PCS; 2019-11-17)
PROC: 4A023N7 Measurement of Cardiac Sampling and Pressure, Left Heart, Percutaneous Approach (ICD-10-PCS; 2019-11-20)
PROC: B2111ZZ Fluoroscopy of Multiple Coronary Arteries using Low Osmolar Contrast (ICD-10-PCS; 2019-11-20)
PROC: B2151ZZ Fluoroscopy of Left Heart using Low Osmolar Contrast (ICD-10-PCS; 2019-11-20)
PROC: B31J1ZZ Fluoroscopy of Left Upper Extremity Arteries using Low Osmolar Contrast (ICD-10-PCS; 2019-11-20)
PROC: 02100Z9 Bypass Coronary Artery, One Artery from Left Internal Mammary, Open Approach (ICD-10-PCS; 2019-11-24)
PROC: 021209W Bypass Coronary Artery, Three Arteries from Aorta with Autologous Venous Tissue, Open Approach (ICD-10-PCS; 2019-11-24)
PROC: 06BQ4ZZ Excision of Left Saphenous Vein, Percutaneous Endoscopic Approach (ICD-10-PCS; 2019-11-24)
DX: I21.4 Non-ST elevation (NSTEMI) myocardial infarction (principal); J96.01 Acute respiratory failure with hypoxia; I50.23 Acute on chronic systolic (congestive) heart failure; G92 Toxic encephalopathy; E43 Unspecified severe protein-calorie malnutrition; N17.9 Acute kidney failure, unspecified; J18.9 Pneumonia, unspecified organism; E87.2 Acidosis; D64.9 Anemia, unspecified; E87.1 Hypo-osmolality and hyponatremia; E78.5 Hyperlipidemia, unspecified; J44.0 Chronic obstructive pulmonary disease with (acute) lower respiratory infection; E11.9 Type 2 diabetes mellitus without complications; I25.10 Atherosclerotic heart disease of native coronary artery without angina pectoris; N39.0 Urinary tract infection, site not specified; I11.0 Hypertensive heart disease with heart failure; I42.0 Dilated cardiomyopathy; I25.5 Ischemic cardiomyopathy; Z79.899 Other long term (current) drug therapy; Z87.891 Personal history of nicotine dependence; Z68.26 Body mass index [BMI] 26.0-26.9, adult; Z78.1 Physical restraint status
CPT/HCPCS: 36415; 36600; 71045; 80048; 80053; 80305; 81003; 82140; 82375; 82550; 82553; 82805; 82947; 82962; 83605; 83735; 83880; 84484; 85025; 86705; 86709; 86803; 86850; 86900; 86920; 87070; 87340; 87389; 92610; 93005; 93306; 93459; 93880; 94002; 94003; 94640; 97110; 97116; 97162; 97164; 97166; 97530; 99285; C1760; C1769; C1887; C9113; J0330; J0456; J0690; J0696; J1100; J1250; J1644; J1650; J1815; J1885; J1940; J2060; J2250; J2270; J2370; J2405; J2440; J2710; J2720; J2920; J2930; J3010; J3370; J3475; J3480; J3490; J7040; J7050; J7060; J7512; L1830; P9041; P9047; Q9967